=== PATIENT | female | born 1970 | race American Indian/Alaskan Native ===

== ENCOUNTER 2018-09-13 09:45 | Outpatient (CLI) | payer BC, MEDICARE ==
--- NOTE | 2018-09-14 07:35 | Ultrasound Report ---
ULTRASOUND RENAL BILATERAL HISTORY: Abnormal CT scan. COMPARISON: None at this facility. TECHNIQUE: transabdominal ultrasound with color Doppler interrogation. FINDINGS: The right kidney measures 10.0cm. Right renal cortex: 1.0cm. The left kidney measures 10.6cm. Left renal cortex: 2.0cm. The renal parenchyma is slightly echogenic consistent with nonspecific renal parenchymal disease. Bilateral renal cysts are identified. There are 3 cysts in the right kidney measuring 2.2 cm, 0.7 cm and 1.7 cm. There are 5 small cysts in the left kidney ranging from 0.5 cm to 1.9 cm in no renal mass is identified. There are a few echogenic foci in the left kidney which could represent nonobstructing calyceal stones. The bladder is partially empty but grossly unremarkable. IMPRESSION: Nonspecific renal parenchymal disease. Bilateral renal cysts as described. Question left nephrolithiasis.
== END 2018-09-13 09:46 | disposition home or self-care (01) ==
LOC: US 09:45
PROVIDERS: ATTEND Internal Medicine
DX: N28.1 Cyst of kidney, acquired (principal); N28.9 Disorder of kidney and ureter, unspecified; I34.0 Nonrheumatic mitral (valve) insufficiency; Z88.2 Allergy status to sulfonamides
CPT/HCPCS: 76770; 93306